=== PATIENT | female | born 1960 | race Caucasian/White ===

== ENCOUNTER 2016-03-22 10:27 | Day surgery (SDC) | payer OTHER ==
[2016-03-21 17:28] VITALS: BMI 25.7
[2016-03-22] VITALS (18 sets, daily range): BP systolic 91–126; BP diastolic 43–55; PULSE 62–82; RESP 14–26; Ht 154.9 cm; Wt 62.5 kg
[~2016-03-22] VITALS: Ht 154.9 cm; Wt 62.5 kg
[~2016-03-22 10:27] MED LIST: ALBU18HF INHALATION; CEFAZOLIN 1 GM INJ ONE; DIVA250T60; ELET20TA PO; FLUT1AER INHALATION; HYDR-902 PO; LEVO25TA59; LORA0.5T PO; METO25TA7 PO; NASO17 NASAL; PREM3 PO; PROVENTIL HFA 6.7GM INHALER ONE; SMV40T; TOPROL; [UNRECOGNIZED DRUG - OTHER]
[2016-03-22] MEDS ORDERED: CEFAZOLIN 2 GM/50 ML (PMX) 50 ML IVPB ONE (12:00)
[2016-03-22] MEDS ORDERED: LACTATED RINGER'S 1,000 ML IV* ONE (12:00)
--- NOTE | 2016-03-22 13:31 | HPN ---
Date/Time of Note Date/Time of Note DATE: 03/22/16 TIME: 13:30 Interval H&P Admission Note Pt. seen H&P reviewed: No system changes NOE PURI MD Mar 22, 2016 13:31
[2016-03-22] MEDS ORDERED: OXYCODONE/ACETAMINOPHEN (5/325) TAB PO PRN ×2 (16:30)
[2016-03-22] MEDS ORDERED: ONDANSETRON 4 MG INJ IV PRN (16:30)
[2016-03-22] MEDS ORDERED: PROCHLORPERAZINE 10 MG INJ IV PRN (16:30)
[2016-03-22] MEDS ORDERED: DIPHENHYDRAMINE 50 MG INJ IV PRN (16:30)
[2016-03-22] MEDS ORDERED: HYDROmorphONE (0.2 MG/ML) 10ML SYG IV PRN ×3 (16:30)
[2016-03-22] MEDS ORDERED: FENTAnyl 50 MCG/ML VIAL IV PRN ×3 (16:30)
[2016-03-22] MEDS ORDERED: MEPERIDINE 25 MG INJ IV PRN (16:30)
[2016-03-22] MEDS ORDERED: morphine 2 MG INJ IV PRN (17:00)
[2016-03-22] MEDS ORDERED: HYDROCODONE/APAP (5/325) TAB PO PRN (17:00)
[2016-03-22] MEDS ORDERED: EPHEDrine SULFATE 50 MG/5 ML SYG ONE (17:04)
[2016-03-22] MEDS ORDERED: DEXAMETHASONE 4 MG/ML 1 ML INJ ONE (17:04)
[2016-03-22] MEDS ORDERED: NEOSTIGMINE 3 MG/3 ML SYRINGE ONE (17:04)
[2016-03-22] MEDS ORDERED: ONDANSETRON 4 MG INJ ONE (17:04)
[2016-03-22] MEDS ORDERED: PHENYLephrine (100 MCG/ML) 5ML SYG ONE (17:04)
[2016-03-22] MEDS ORDERED: PROPOFOL 20 ML ONE ×2 (17:04)
[2016-03-22] MEDS ORDERED: GLYCOPYRROLATE 0.4 MG INJ ONE ×2 (17:04)
[2016-03-22] MEDS ORDERED: ROPIVACAINE 0.5 % 30 ML VIAL ONE (17:04)
[2016-03-22] MEDS ORDERED: LIDOCAINE 2% (SDV) 5 ML INJ ONE (17:04)
[2016-03-22] MEDS ORDERED: FENTAnyl 50 MCG/ML VIAL ONE (17:04)
[2016-03-22] MEDS ORDERED: ROCURONIUM 50 MG INJ ONE (17:04)
[2016-03-22] MEDS ORDERED: FAMOTIDINE 20 MG INJ ONE (17:04)
[2016-03-22] MEDS ORDERED: MIDAZOLAM 1 MG/ML 2 ML INJ ONE (17:04)
[2016-03-22] MEDS ORDERED: SUCCINYLCHOLINE CHLORIDE 100 MG/5 ML SYG IV ONE (17:04)
--- NOTE | 2016-05-14 12:06 | OPR ---
DATE OF OPERATION: 03/22/2016 SURGEON: Noe Gorman MD ANESTHESIA: General. PREOPERATIVE DIAGNOSES: 1. Left shoulder partial rotator cuff tear. 2. Left subacromial impingement. 3. Left extensive bursitis. 4. Type 3 superior labral tear. POSTOPERATIVE DIAGNOSES: 1. Left shoulder partial rotator cuff tear. 2. Left subacromial impingement. 3. Left extensive bursitis. 4. Type 3 superior labral tear. OPERATIONS PERFORMED: 1. Arthroscopy of the left shoulder. 2. Extensive debridement of glenohumeral joint. 3. Subacromial decompression. 4. Extensive bursectomy. The patient is well known to us, we see in our [facility], and she has been dealing with signs an d symptoms consistent with subacromial impingement which has failed conservative measures on her lef t shoulder. After the risks and benefits of surgery are explained to the patient including pain, bl eeding, infection, scar, damage to neurovascular structures, failure for the surgery to working, and future surgery, the patient elected to proceed with arthroscopy of the shoulder. DESCRIPTION OF PROCEDURE: The patient was marked and identified in preoperative holding, brought to the operating room, and placed upon a regular operating room table and under general anesthesia. S he was placed in the lateral decubitus position with a beanbag and her bony prominences were padded and an axillary roll was placed. Sequential compressive devices were placed on bilateral lower extr emities, and her left arm was placed into balanced suspension. Her left arm was prepped and draped in the usual sterile fashion, and a time out was performed. Arthroscopy was initiated with standard posterior and anterior mid glenoid portals at which time a diagnostic arthroscopy was initiated, e results of which demonstrated degenerative superior labral tear, mild undersurface fraying of rota tor cuff. Biceps tendon was in good condition and there were adhesions within the glenohumeral join t. Later on in the surgery and subacromial decompression subacromial space, the diagnostic bursosco py here demonstrated significant fraying of the underside of the coracoacromial ligament and some pa rtial fraying of the superior aspect of the rotator cuff in the bursal space and a large subacromial bone spur. Our first area of work was within the glenohumeral joint where an extensive debridement took place from both anterior and posterior of the superior labrum as well as structures on the und ersurface of the rotator cuff. The biceps tendon was inspected and found to be in good condition. When the bursoscopy was initiated and standard lateral portal was established, a subacromial decompr ession took place from the lateral and posterior portals, and a bursectomy was performed on the top of the rotator cuff. Attention was now turned to the distal clavicle, was found to be in fair condi tion and no excision was performed here, and the top side of the rotator cuff was inspected thorough ly to confirm that there were no significant tears in need of repair and that was indeed the case. The entire area was irrigated once more and the last bits of debris were removed, and all instrument ation was removed. Closure was performed with a 3-0 Monocryl, and sterile dressing and an abduction pillow sling was applied. The patient was extubated in the operating room in good condition. Dictated By: NOE ANGEL/TERRENCE Conf#: [id number] DID#: [id number]
== END 2016-03-22 23:00 | disposition home or self-care (01) ==
LOC: SDS 10:27
PROVIDERS: ATTEND Orthopaedic Surgery
DX: M75.102 Unspecified rotator cuff tear or rupture of left shoulder, not specified as traumatic (principal); M75.42 Impingement syndrome of left shoulder; M75.52 Bursitis of left shoulder; E03.9 Hypothyroidism, unspecified; E78.5 Hyperlipidemia, unspecified; J45.909 Unspecified asthma, uncomplicated
CPT/HCPCS: 29823; J0330; J0690; J1100; J2250; J2370; J2405; J2710; J2795; J3010; Z7512; Z7610

== ENCOUNTER 2017-05-14 10:44 | Day surgery (SDC) | END 2017-05-14 15:39 | disposition home or self-care (01) ==

== ENCOUNTER 2017-08-06 12:57 | Emergency (ER) | END 2017-08-06 15:39 | disposition home or self-care (01) ==

== ENCOUNTER 2018-01-09 12:50 | Day surgery (SDC) | END 2018-01-09 18:35 | disposition home or self-care (01) ==

== ENCOUNTER 2018-06-23 05:42 | Emergency (ER) | payer MEDICARE, OTHER ==
[~2018-06-23] VITALS: Ht 157.5 cm; Wt 57.6 kg
[~2018-06-23 05:42] MED LIST changes: +BUTA1CAP38 PO; -CEFAZOLIN 1 GM INJ ONE; +DIV250 PO; -DIVA250T60; +HYDR-4012 PO; -HYDR-902 PO; +LEVO25TA; -LEVO25TA59; -LORA0.5T PO; +METO-335 PO; -METO25TA7 PO; -NASO17 NASAL; +PANT40TA3 PO; -PROVENTIL HFA 6.7GM INHALER ONE; +SIMV40TA2 PO; -SMV40T; -TOPROL; -[UNRECOGNIZED DRUG - OTHER]
[2018-06-23 05:47] VITALS: BP 133/60; PULSE 76; RESP 16; Ht 157.5 cm; Wt 57.6 kg
--- NOTE | 2018-06-23 06:51 | ERD ---
ER Documentation Chief Complaint Chief Complaint hemuturia this morning HPI 58-year-old female with past medical history of asthma, hypothyroidism, hypercholesteremia, GERD, gastric ulcers status post endoscopy 1 year ago, migraines, status post hysterectomy 2007 presents with complaint of hematuria. Patient states that she began to notice pink tinge urine output around midnight. Subsequently urine output becoming darker red in color with small clots noticed. Patient also noticed when she wiped she noticed small streaks of blood as well as which she thinks are clots. She also reports left-sided predominant left lower quadrant abdominal pain. Also it symptoms of burning during urination as well as frequency. She otherwise denies bright red blood per rectum, vaginal bleeding or discharge, persistent nausea and vomiting, fever or chills, shortness of breath, chest pain. Reports moving bowels regularly and passing gas. Denies history of kidney or gallbladder stones. Denies history of UTI and currently is not sexually active. No family history of urological or [employer] malignancy. At time of evaluation patient is hemodynamically stable and appropriate with normal triage vital signs. ROS All systems reviewed and are negative except as per history of present illness. Medications Home Meds Active Scripts Oxycodone HCl/Acetaminophen (Percocet 5-325 mg Tablet) 1 Each Tablet, 1 EACH PO Q6 PRN for PAIN LEVEL 6-10, #7 TAB Prov:JESSIE MCCONNELL-C 06/23/18 Cephalexin* (Keflex*) 500 Mg Capsule, 500 MG PO BID for 7 Days, CAP Prov:CHERELLEUDINEJESSIE PA-C 06/23/18 Pantoprazole* (Protonix*) 40 Mg Tablet., 40 MG PO DAILY, #20 TAB Prov:MARTINA RIVAS MD 08/06/17 Reported Medications Simvastatin* (Zocor*) 40 Mg Tablet, 40 MG PO QHS, #30 TAB 08/06/17 Hydrocodone/Acetaminophen (Dudley 7.5-325 Tablet) 1 Each Tablet, 1 EACH PO DAILY PRN for SEVERE PAIN LEVEL 7-10, TAB 08/06/17 Divalproex Sodium* (Divalproex Sodium*) 250 Mg Tablet.dr, 250 MG PO TID, #90 TAB 08/06/17 Nxvejlkwtu-Bfpiqplywbnjk-Hpybdtcn* (Fioricet*) 50-300-40 Mg Capsule, 1 CAP PO Q4H PRN for PRN, CAP 05/14/17 Eletriptan Hydrobromide (Relpax) 20 Mg Tablet, 40 MG PO DAILY PRN for PRN, TAB 03/21/16 Albuterol Sulfate* (Ventolin HFA*) 18 Gm Hfa.aer.ad, 2 PUFF INHALATION Q6H, #1 INHALER 03/21/16 Fluticasone-Vilanterol (Breo Ellipta Inhaler) 100-25 Mcg/Actuation Aer.pow.ba, 2 PUFF INHALATION DAILY, #1 INHALER 03/21/16 Estrogens Conjugated* (Premarin*) 0.3 Mg Tablet, 0.3 MG PO DAILY, TAB 03/21/16 Metoprolol Succinate* (Toprol XL*) 25 Mg Tab.sr.24h, 25 MG PO DAILY, #30 TAB 03/21/16 Levothyroxine Sodium* (Synthroid*) 25 Mcg Tablet, 50 MG DAILY 10/02/12 Allergies Allergies: Coded Allergies: cat dander (Verified Allergy, Unknown, 08/06/17) topiramate (Verified Adverse Reaction, Intermediate, PSYCH EFFECT, 08/06/17) dextromethorphan (Verified Adverse Reaction, Unknown, anxiety, 08/06/17) PMhx/Soc History of Surgery: Yes (HYSTERECTOMY, SHOULDER LT, TONSILLECTOMY) Anesthesia Reaction: No Hx Neurological Disorder: No Hx Respiratory Disorders: Yes (ASTHMA) Hx Cardiac Disorders: No Hx Psychiatric Problems: No Hx Miscellaneous Medical Probl: No Hx Alcohol Use: No Hx Substance Use: No Hx Tobacco Use: No Smoking Status: Never smoker FmHx Family History: No diabetes, No coronary disease, No other Physical Exam Vitals Vital Signs Date Temp Pulse Resp B/P (MAP) Pulse Ox O2 O2 Flow FiO2 Time Delivery Rate 06/23/18 98.2 76 16 133/60 100 05:47 (84) Physical Exam I have reviewed the triage vital signs. Const: Well nourished, well developed, appears stated age Eyes: PERRL, no conjunctival injection HENT: NCAT, Neck supple without meningismus CV: RRR, Warm, well-perfused extremities RESP: CTAB, Unlabored respiratory effort GI: soft, non-tender, non-distended, no masses MSK: No gross deformities appreciated Skin: Warm, dry. No rashes Neuro: grossly non focal Psych: Appropriate mood and affect. Result Diagram: 06/23/18 0654 06/23/18 0654 Results 24 hrs Laboratory Tests Test 06/23/18 06:54 06/23/18 06:55 White Blood Count 10.8 10^3/ul Red Blood Count 4.05 10^6/ul Hemoglobin 13.0 g/dl Hematocrit 39.0 % Mean Corpuscular Volume 96.3 fl Mean Corpuscular Hemoglobin 32.1 pg Mean Corpuscular Hemoglobin Concent 33.3 g/dl Red Cell Distribution Width 12.5 % Platelet Count 177 10^3/UL Mean Platelet Volume 10.6 fl Immature Granulocytes % 0.400 % Neutrophils % 74.0 % Lymphocytes % 17.8 % Monocytes % 5.5 % Eosinophils % 1.8 % Basophils % 0.5 % Nucleated Red Blood Cells % 0.0 /100WBC Immature Granulocytes # 0.040 10^3/ul Neutrophils # 8.0 10^3/ul Lymphocytes # 1.9 10^3/ul Monocytes # 0.6 10^3/ul Eosinophils # 0.2 10^3/ul Basophils # 0.1 10^3/ul Nucleated Red Blood Cells # 0.0 10^3/ul Sodium Level 140 mmol/L Potassium Level 4.1 mmol/L Chloride Level 101 mmol/L Carbon Dioxide Level 30 mmol/L Anion Gap 9 Blood Urea Nitrogen 22 mg/dl Creatinine 0.81 mg/dl Est Glomerular Filtrat Rate mL/min > 60 mL/min Glucose Level 88 mg/dl Calcium Level 9.8 mg/dl Total Bilirubin 0.3 mg/dl Direct Bilirubin 0.00 mg/dl Indirect Bilirubin 0.3 mg/dl Aspartate Amino Transf (AST/SGOT) 21 IU/L Alanine Aminotransferase (ALT/SGPT) 14 IU/L Alkaline Phosphatase 44 IU/L Total Protein 7.2 g/dl Albumin 4.3 g/dl Globulin 2.90 g/dl Albumin/Globulin Ratio 1.48 Lipase 122 U/L Urine Color RED Urine Clarity TURBID Urine pH 7.0 Urine Specific [place] 1.019 Urine Ketones NEGATIVE mg/dL Urine Nitrite NEGATIVE mg/dL Urine Bilirubin NEGATIVE mg/dL Urine Urobilinogen NEGATIVE mg/dL Urine Leukocyte Esterase 2+ Kwame/ul Urine Microscopic RBC > 182 /HPF Urine Microscopic WBC > 182 /HPF Urine Bacteria FEW /HPF Urine Hemoglobin 3+ mg/dL Urine Glucose NEGATIVE mg/dL Urine Total Protein 3+ mg/dl Procedures/MDM 58-year-old female who presents with hematuria. Her workup in the emergency room has been unremarkable except for possible evidence of urinary tract infection. She is hemodynamically stable with no evidence of pending hemodynamic compromise. Hemoglobin stable and other appropriate labs unremarkable. The cause of the hematuria is unclear. However the patients history, exam, and studies ordered are not consistent with kidney stone, urethral or intraabdominal trauma, drug reaction, coagulopathy or other serious bacterial infection. UA without evidence of infection however and will treat with appropriate antibiotic US abdomen complete without evidence of gallbladder or renal pathology VSS and patient in NAD, afebrile. PMD follow-up, urological evaluation as outpatient, strict return precautions DISPOSITION PLAN: We discussed follow up with the patient's primary care doctor within 24 to 48 hours. We discussed need to follow-up with her PMD and referral to urology. Patient counseled regarding my diagnostic impression and care plan. Prior to discharge all questions answered. Pt agrees with treatment plan and understands strict return precautions. Precautionary instructions provided including instructions to return to the ER if not improving or for any worsening or changing symptoms or concerns. Departure Condition: Stable (ERASED) JESSIE MCCONNELL PA-C Jun 23, 2018 06:51
[2018-06-23] MEDS ORDERED: CEPH-443 PO (08:30)
[2018-06-23] MEDS ORDERED: OXYC-279 PO (08:40)
== END 2018-06-23 08:46 | disposition home or self-care (01) ==
LOC: FTE 05:42
DX: R31.9 Hematuria, unspecified (principal)
CPT/HCPCS: 36415; 76700; 80053; 81001; 83690; 85025

== ENCOUNTER 2019-01-09 11:17 | Emergency (ER) | payer OTHER ==
[~2019-01-09] VITALS: Ht 154.9 cm; Wt 58.8 kg
[~2019-01-09 11:17] MED LIST changes: +CEPH-443 PO; +GUAI100S PO; +OXYC-279 PO
[2019-01-09 11:21] VITALS: BP 120/53; PULSE 78; RESP 18; Ht 154.9 cm; Wt 58.8 kg
== END 2019-01-09 12:15 | disposition home or self-care (01) ==
LOC: FTE 11:17
DX: J06.9 Acute upper respiratory infection, unspecified (principal); J45.909 Unspecified asthma, uncomplicated; E03.9 Hypothyroidism, unspecified
CPT/HCPCS: 99283